=== PATIENT | male | born 2000 | race Caucasian/White ===

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

== ENCOUNTER 2020-04-14 10:26 | Emergency (ER) | payer OTHER ==
--- NOTE | 2020-04-14 11:44 | XRAY Report ---
PROCEDURE: Forearm LT INDICATIONS: Trauma TECHNIQUE: 2 views of the forearm were acquired. COMPARISON: None. FINDINGS: Bones: No fractures or dislocations. No suspicious bony lesions. Soft tissues: No suspicious soft tissue calcifications or masses. IMPRESSION: 1. No fracture or dislocation. Reviewed by: Maurice Bailey MD on 04/14/2020 11:43 AM [facility] Approved by: Maurice Bailey MD on 04/14/2020 11:43 AM [facility] Station ID: [id number]
--- NOTE | 2020-04-14 11:53 | ED Physician Documentation ---
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 Presents to the emergency department after running into a steel pole with his left arm 3 days ago. He states he went to work today and was given a workmen's compensation packet and told to come to the emergency department for evaluation. Pain is worse with movement, better with rest. Most of the pain is in the mid left forearm, also has some mild shoulder pain. Review of Systems Constitutional: denies: Fever, Chills Nose: denies: Rhinorrhea / runny nose Cardiac: denies: Chest pain / pressure Respiratory: denies: Cough GI: denies: Vomiting, Diarrhea Skin: denies: Rash Musculoskeletal: denies: Neck pain, Back pain Neurologic: denies: Headache PD PAST MEDICAL HISTORY - Past Medical History Respiratory: Asthma - Past Surgical History Past Surgical History: No - Present Medications Home Medications: Ambulatory Orders Medication Instructions Recorded Confirmed Montelukast [Singulair] 10 mg PO DAILY 04/14/20 04/14/20 busPIRone [Buspar] 5 mg PO DAILY 04/14/20 04/14/20 - Allergies Allergies/Adverse Reactions: Allergies Allergy/AdvReac Type Severity Reaction Status Date / Time No Known Drug Allergies Allergy Verified 04/14/20 10:40 - Social History Does the pt smoke?: No Smoking Status: Never smoker Does the pt drink ETOH?: No Does the pt have substance abuse?: No - Immunizations Immunizations are current?: Yes - POLST Patient has POLST: No PD ED PE NORMAL - Vitals Vital signs reviewed: Yes - General General: Alert and oriented X 3 - HEENT HEENT: Moist mucous membranes - Neck Neck: Supple, no meningeal sign - Cardiac Cardiac: RRR, Strong equal pulses - Respiratory Respiratory: No respiratory distress, Clear bilaterally - Derm Derm: Warm and dry - Extremities Extremities: Other (Mild pain with active range of motion of the left shoulder, no palpation tenderness over the glenohumeral joint. No swelling. Neurovascularly intact. Normal examination of the elbow and wrist. Has a small contusion on the medial aspect of the midforearm. Neurovascular intact) - Neuro Neuro: Alert and oriented X 3 Results - Vitals Vitals: Vital Signs - 24 hr 04/14/20 04/14/20 10:42 12:14 Temperature 37.1 C 37.0 C Heart Rate 76 78 Respiratory 19 18 Rate Blood Pressure 139/79 H 132/67 H O2 Saturation 100 97 Oxygen O2 Source Room air - Rads (name of study) Left forearm x-ray Radiology: Prelim report reviewed, EMP read contemporaneously, See rad report (No acute abnormality) PD MEDICAL DECISION MAKING - ED course Complexity details: reviewed results, re-evaluated patient, considered differential, d/w patient ED course: 19-year-old male with a left forearm contusion. We will have him follow-up with his doctor for further care. Can utilize Motrin and Tylenol as needed for pain. L&I paperwork filled out. Patient counseled regarding signs and symptoms for which I believe and urgent re-evaluation would be necessary. Patient with good understanding of and agreement to plan and is comfortable going home at this time This document was made in part using voice recognition software. While efforts are made to proofread this document, sound alike and grammatical errors may occur. Departure - Departure Disposition: 01 Home, Self Care Clinical Impression: Contusion of soft tissue Condition: Good Instructions: ED Contusion Soft Tissue Follow-Up: your,doctor in 1 week [Other] Comments: You can use Motrin or Tylenol as needed for pain. Follow-up with your doctor for further care. Return if you worsen. Your x-ray is normal. Forms: Activity restrictions Discharge Date/Time: 04/14/20 12:20
[2020-04-14 12:15] VITALS: BP 132/67
== END 2020-04-14 12:20 | disposition home or self-care (01) ==
LOC: ED 10:26
DX: S50.12XA Contusion of left forearm, initial encounter (principal); M25.512 Pain in left shoulder; W22.09XA Striking against other stationary object, initial encounter; Y93.02 Activity, running; Y92.139 Unspecified place military base as the place of occurrence of the external cause; Y99.1 Military activity
CPT/HCPCS: 99283; 99284

== ENCOUNTER 2020-10-22 00:20 | Emergency (ER) | payer OTHER ==
--- NOTE | 2020-10-22 00:56 | ED Physician Documentation ---
History of Present Illness - Stated complaint Stated Complaint: DEHYDRATION, TOO MUCH CAFFINE - History obtained from History obtained from: Patient - Additonal information Additional information: Patient comes emergency department chief complaint of "I drank too much caffeine today and I am dehydrated". Patient states he got up at 4:00 this morning for work and drink his usual coffee. However, he felt more tired than usual today so he drank extra coffee, both at work and after he got home at 230 this afternoon. Patient states that he was busy doing other stuff and forgot to drink water and then began to realize that he had allowed himself to get dehydrated. He states he got in the shower, prior to getting ready for bed, and he just began to feel as though the area was very hot. He states he began to have a panic attack, so he got out of the shower, and then vomited. He had a brief episode of central chest pain at that time. Patient states that the pain is better but his chest feels tight when he tries to take deep breaths. He states he is also slightly tremulous. He has a mild sense of nausea still, as well. Patient does note that since the shower, he drank an entire 32 ounce bottle of water and then half of another 32 ounce bottle. He does note that he was able to urinate before coming here and that it was clear. He also states it is very light-colored and looked just like water. Patient does note that he is supposed to get up in 3 hours and go to work. No other complaints at this time. Review of Systems Ten Systems: 10 systems reviewed and negative Constitutional: reports: Reviewed and negative Eyes: reports: Reviewed and negative Ears: reports: Reviewed and negative Nose: reports: Reviewed and negative Throat: reports: Reviewed and negative Cardiac: reports: Reviewed and negative Respiratory: reports: Reviewed and negative GI: reports: Nausea : reports: Reviewed and negative Skin: reports: Reviewed and negative Musculoskeletal: reports: Reviewed and negative Neurologic: reports: Reviewed and negative Psychiatric: reports: Reviewed and negative Endocrine: reports: Reviewed and negative Immunocompromised: reports: Reviewed and negative PD PAST MEDICAL HISTORY - Past Medical History Past Medical History: Yes Respiratory: Asthma Psych: Depression, Anxiety - Past Surgical History Past Surgical History: No - Present Medications Home Medications: Ambulatory Orders Medication Instructions Recorded Confirmed Montelukast [Singulair] 10 mg PO DAILY 04/14/20 10/22/20 busPIRone [Buspar] 5 mg PO DAILY 04/14/20 10/22/20 Albuterol 2.5 mg INH Q4H PRN 10/22/20 10/22/20 hydrOXYzine HCL [Hydroxyzine HCl] 10 mg PO PRN PRN 10/22/20 10/22/20 - Allergies Allergies/Adverse Reactions: Allergies Allergy/AdvReac Type Severity Reaction Status Date / Time No Known Drug Allergies Allergy Verified 10/22/20 00:28 - Social History Does the pt smoke?: No Smoking Status: Never smoker Does the pt drink ETOH?: No Does the pt have substance abuse?: No - Immunizations Immunizations are current?: Yes - POLST Patient has POLST: No PD ED PE NORMAL - Vitals Vital signs reviewed: Yes - General General: Alert and oriented X 3, No acute distress, Well developed/nourished - HEENT HEENT: Atraumatic, PERRL, EOMI, Moist mucous membranes - Neck Neck: Supple, no meningeal sign - Cardiac Cardiac: RRR, No murmur - Respiratory Respiratory: No respiratory distress, Clear bilaterally - Abdomen Abdomen: Soft, Non tender, Non distended - Derm Derm: Normal color, Warm and dry, No rash - Extremities Extremities: No deformity, No edema, No calf tenderness / cord - Neuro Neuro: Alert and oriented X 3 - Psych Psych: Normal mood, Normal affect Results - Vitals Vitals: Vital Signs - 24 hr 10/22/20 10/22/20 00:25 00:31 Temperature 36.1 C L 36.1 C L Heart Rate 69 69 Respiratory 18 18 Rate Blood Pressure 139/83 H 139/83 H O2 Saturation 100 100 Oxygen O2 Source Room air - EKG (time done) 0039 Rate: Rate (enter#) (66) Rhythm: NSR [place]: Normal Intervals: Normal VA QRS: Normal Ischemia: Normal ST segments. No: T wave inversion Compare to prior EKG: Old EKG unavailable Computer interpretation: Agree with computer PD MEDICAL DECISION MAKING - ED course Complexity details: reviewed results, re-evaluated patient, considered differential, d/w patient ED course: I discussed with the patient that actually, his vital signs look good, as does his EKG. Additionally, patient's actually had quite a bit of water and I do not feel that he is significantly dehydrated at all. He should drink plenty of water tomorrow to finish catching up. I have advised the patient to avoid brittany bustos so much caffeine. I will give him a work note for tomorrow since he has not yet slept and is due to get up in 3 hours. We have discussed the usual indications for return. Departure - Departure Disposition: 01 Home, Self Care Clinical Impression: Nausea Caffeine adverse reaction Qualifiers: Encounter type: initial encounter Qualified Code(s): T43.615A - Adverse effect of caffeine, initial encounter Condition: Stable Instructions: ED Nausea Vomiting
[2020-10-22] MEDS: ONDANSETRON 4 MG/2 ML VIAL IM STA ×2 (00:58→01:02)
[2020-10-22] MEDS ORDERED: ONDANSETRON ODT 4 MG TABLET TL STA (01:00)
[2020-10-22 01:10] VITALS: BP 129/79
== END 2020-10-22 01:10 | disposition home or self-care (01) ==
LOC: ED 00:20
DX: R11.2 Nausea with vomiting, unspecified (principal); T43.615A Adverse effect of caffeine, initial encounter
CPT/HCPCS: 93005; 99283; 99284; Q0162